=== PATIENT | male | born 1955 | race Caucasian/White ===

== ENCOUNTER 2021-01-27 07:52 | Outpatient (CLI) | payer MEDICAID | END 2021-01-27 23:59 | disposition home or self-care (01) | LOC: RAD 07:52 | DX: F11.20 Opioid dependence, uncomplicated (principal) | CPT/HCPCS: 93005 ==

== ENCOUNTER 2021-05-16 07:57 | Outpatient (CLI) | payer MEDICARE, MEDICAID ==
[2021-05-16] VITALS (7 sets, daily range): BP systolic 107–148; BP diastolic 62–83
[~2021-05-16] VITALS: Ht 167.6 cm; Wt 93.9 kg
[~2021-05-16 07:57] MED LIST: FLO0.4C PO
[2021-05-16] MEDS ORDERED: regadenoson 0.4mg/5ml syringe IV ONE (09:20)
== END 2021-05-16 23:59 | disposition home or self-care (01) ==
LOC: RAD 07:57
PROVIDERS: ATTEND Internal Medicine Interventional Cardiology
DX: R06.09 Other forms of dyspnea (principal); F15.21 Other stimulant dependence, in remission; Z82.49 Family history of ischemic heart disease and other diseases of the circulatory system
CPT/HCPCS: 78452; 93017; A9500; J2785

== ENCOUNTER 2022-03-30 08:10 | Outpatient (CLI) | payer BC, MEDICAID | END 2022-03-30 23:59 | disposition home or self-care (01) | LOC: RAD 08:10 | PROVIDERS: ATTEND Student in an Organized Health Care Education/Training Program | DX: Z01.810 Encounter for preprocedural cardiovascular examination (principal); I34.81 Nonrheumatic mitral (valve) annulus calcification; R06.81 Apnea, not elsewhere classified; I47.20 Ventricular tachycardia, unspecified; R00.1 Bradycardia, unspecified; I69.319 Unspecified symptoms and signs involving cognitive functions following cerebral infarction | CPT/HCPCS: 93308 ==

== ENCOUNTER 2022-05-12 08:56 | Outpatient (CLI) | payer BC, MEDICAID ==
[~2022-05-12] VITALS: Ht 167.6 cm; Wt 92.0 kg
[2022-05-12] VITALS (7 sets, daily range): BP systolic 121–139; BP diastolic 67–82
[2022-05-12] MEDS ORDERED: regadenoson 0.4mg/5ml syringe IV ONE (09:30)
[2022-05-12] MEDS ORDERED: normal saline 500ml IV soln 500 ML IV ONE (09:30)
[2022-05-12] MEDS ORDERED: atropine 0.1mg/ml 10ml syringe IV PRN (09:30)
[2022-05-12] MEDS ORDERED: aminophylline 250mg/10ml inj. IV PRN (09:30)
== END 2022-05-12 23:59 | disposition home or self-care (01) ==
LOC: RAD 08:56
PROVIDERS: ATTEND Student in an Organized Health Care Education/Training Program
DX: Z01.810 Encounter for preprocedural cardiovascular examination (principal); R06.81 Apnea, not elsewhere classified; I47.20 Ventricular tachycardia, unspecified
CPT/HCPCS: 78452; 93017; A9500; J2785; J7040

== ENCOUNTER 2023-12-28 08:54 | Outpatient (CLI) | payer BC, MEDICAID | END 2023-12-28 23:59 | disposition home or self-care (01) | LOC: RAD 08:54 | PROVIDERS: ATTEND Physician Assistant | DX: I44.0 Atrioventricular block, first degree (principal); F11.20 Opioid dependence, uncomplicated | CPT/HCPCS: 93005 ==

== ENCOUNTER 2024-03-20 11:54 | Outpatient (CLI) | payer BC, MEDICAID | END 2024-03-20 23:59 | disposition home or self-care (01) | LOC: RAD 11:54 | PROVIDERS: ATTEND Physician Assistant | DX: R94.31 Abnormal electrocardiogram [ECG] [EKG] (principal); F11.20 Opioid dependence, uncomplicated | CPT/HCPCS: 93005 ==